=== PATIENT | female | born 1990 | race Caucasian/White ===

== ENCOUNTER 2016-11-15 11:08 | Emergency (ER) | payer OTHER ==
[~2016-11-15] VITALS: Ht 157.5 cm; Wt 48.0 kg
[~2016-11-15 11:08] MED LIST: AMOX500T PO; DEPO400I IM
[2016-11-15 11:14] VITALS: BP 110/60; PULSE 76; RESP 16; TEMP 99.3; O2SAT 97
[2016-11-15] MEDS ORDERED: NORG1TAB28 PO (11:19)
[2016-11-15] MEDS ORDERED: ERYTOIN10 LEFT EYE (12:02)
--- NOTE | 2016-11-15 12:07 | PD ---
HPI Chief Complaint: Eye Problems/Injury Time Seen by Provider: 11:50 Travel History International Travel<30 days: No Contact w/Intl Traveler<30days: No Traveled to known affect area: No History of Present Illness HPI 26-year-old female presents to the emergency room for evaluation of left eye redness, itchiness, tearing, drainage, and foreign body sensation for the past 2 days. Patient states she was around someone with pink eye last week. She reports symptoms getting progressively worse. She wakes up with her eye glued shut. She has not put anything in her eye. Patient denies photophobia, changes in visual acuity, significant pain, or headache. She does not work contacts. PFSH Past Medical History Medical History: Denies Significant Hx Diminished Hearing: No Tetanus Vaccination: < 5 Years Influenza Vaccination: No ?: Not : 1 Para: 1 Past Surgical History Surgical History: No Previous Surgery Social History Alcohol Use: No Tobacco Use: No Substance Use: No Allergies-Medications (Allergen,Severity, Reaction): Coded Allergies: No Known Allergies (Unverified , 11/15/16) Reported Meds & Prescriptions Reported Meds & Active Scripts Active Erythromycin Opth Oint 5 Mg/Gm Oint 1 Applic LEFT EYE QID Reported Ortho Tri-Cyclen Lo (Norgestimate-Ethinyl Estradiol) 0.18/0.215/0.25 mg-25 Mcg Tab 1 Tab PO DAILY Review of Systems Except as stated in HPI: all other systems reviewed are Neg Physical Exam Narrative GENERAL: Well-nourished, well-developed female in no acute distress. Afebrile. Ambulatory. SKIN: Focused skin assessment warm/dry. HEAD: Normocephalic. EYES: PERRL, EOMI without pain. Moderate injection of the left eye. No significant discharge. No scleral icterus. Fluorescein staining reveals no corneal abrasion, ulceration, or foreign body. No photophobia. NECK: Supple, trachea midline. No JVD or lymphadenopathy. CARDIOVASCULAR: Regular rate and rhythm without murmurs, gallops, or rubs. RESPIRATORY: Breath sounds equal bilaterally. No accessory muscle use. PSYCHIATRIC: No delusional thought processes. No hallucinations. Data Data Last Documented VS Vital Signs Date Time Temp Pulse Resp B/P (MAP) Pulse Ox O2 Delivery O2 Flow Rate FiO2 11/15/16 11:14 99.3 76 16 110/60 (77) [address] [facility] Medical Decision Making Medical Screen Exam Complete: Yes Emergency Medical Condition: Yes Medical Record Reviewed: Yes Differential Diagnosis Conjunctivitis, foreign body, corneal abrasion Narrative Course 26-year-old female presents to the emergency room for evaluation of left eye redness, foreign body sensation, itchiness, and drainage for the past 2 days. Patient was around someone with pink eye last week. She denies photophobia or changes in visual acuity. Physical exam reveals PERRL, EOMI without pain. Moderate injection of the left eye. No significant discharge. Fluorescein staining reveals no corneal abrasion, ulceration, or foreign body. This is conjunctivitis. Patient discharged with prescription for erythromycin ointment and told to follow up with primary care physician or return for worsening symptoms. She understands and agrees to plan. Diagnosis Primary Impression: Conjunctivitis, left eye Qualified Codes: H10.32 - Unspecified acute conjunctivitis, left eye Referrals: Primary Care Physician Additional Instructions: Erythromycin ointment as directed for 5-7 days. Follow-up with a primary care physician. Return to the emergency room for worsening symptoms. Scripts Erythromycin Opth Oint (Erythromycin Opth Oint) 5 Mg/Gm Oint 1 APPLIC LEFT EYE QID for Infection, #1 TUBE 0 Refills Prov: Nikki Jones MD 11/15/16 Disposition: 01 DISCHARGE HOME Condition: Stable Christina Plummer Nov 15, 2016 12:07
== END 2016-11-15 12:13 | disposition home or self-care (01) ==
LOC: PHEFT 11:08
DX: H10.32 Unspecified acute conjunctivitis, left eye (principal)
CPT/HCPCS: 99283